=== PATIENT | male | born 1990 | race Caucasian/White ===

== ENCOUNTER 2020-08-01 21:48 | Emergency (ER) | payer BC ==
[2020-08-01] MEDS ORDERED: Sodium Chloride 0.9% 2.5 ML Syringe FLUSH PRN (22:22)
[2020-08-01] MEDS ORDERED: Sodium Chloride 0.9% 10 ML Syringe FLUSH PRN (22:22)
[2020-08-01 23:00] LABS: CARBON DIOXIDE,CO2 24.1 mmol/L (21.0-32.0); POTASSIUM,K 3.5 mmol/L (3.5-5.1)
[2020-08-01] MEDS ORDERED: oxyCODONE 5 MG Tab PO ONE (23:00)
[2020-08-01] MEDS ORDERED: Ketorolac 30 MG/ML SDV IVPUSH ONE (23:00)
[2020-08-01] MEDS ORDERED: Acetaminophen 500 MG Tab PO ONE (23:00)
[2020-08-01] MEDS ORDERED: Lactated Ringers 1,000 ML IV ONE (23:01)
[2020-08-01] MEDS ORDERED: Iopamidol 755 Mg/ML 100 ML Bottle IVPUSH ONE (23:57)
--- NOTE | 2020-08-02 00:26 | CT ---
INDICATION: Left flank pain TECHNIQUE: CT abdomen and pelvis acquired with IV contrast. 100 mL of Isovue 370 administered. COMPARISON: None available FINDINGS: Lower chest: Unremarkable. Liver: Hepatomegaly measuring 24.7 cm craniocaudally. Hepatic steatosis. Spleen: Splenomegaly measuring 15 cm anteroposteriorly. Pancreas: Unremarkable. Gallbladder and bile ducts: Unremarkable. Adrenal glands: Unremarkable. Kidneys: Mild left hydroureteronephrosis and a delayed left nephrogram with a 6 mm calculus in the distal left ureter at the UVJ. No right hydronephrosis. An apparent punctate density in the mid right ureter on image 106 with small regional ureteral soft tissue density. GI tract: Unremarkable. Appendix is normal. Vascular structures: Unremarkable. Lymph nodes: Unremarkable. Miscellaneous: No significant free fluid or free air. Pelvic Organs: Mild bladder wall thickening. Unremarkable prostate. Bones: Unremarkable for age. IMPRESSION: Mild left obstructive uropathy due to a 6 mm distal ureteral calculus at the UVJ. An apparent punctate calcific density in the mid right ureter without right obstructive uropathy. Apparent regional ureteral soft tissue density is nonspecific. Recommend follow-up urological evaluation, including urine cytology. Mild bladder wall thickening. Correlate for a superimposed UTI. Hepatomegaly and hepatic steatosis. Splenomegaly. Dictated by Sarabjit Mejia MD @ 08/02/2020 12:24:32 AM Please note that all CT scans at this facility use dose modulation, iterative reconstruction, and/or weight-based dosing when appropriate to reduce radiation dose to as low as reasonably achievable. Dictated by: Sarabjit Mejia MD @ 08/02/2020 00:24:38 (Electronically Signed)
--- NOTE | 2020-08-02 00:46 | EDM.PDOC ---
ED [facility] GENERAL MEDICAL PROBLEM - General Chief Complaint: Flank Pain Stated Complaint: POSSIBLE KIDNEY STONES Time Seen by Provider: 08/01/20 22:23 Source of Information: Reports: Patient History Limitations: Reports: No Limitations - History of Present Illness INITIAL COMMENTS - FREE TEXT/NARRATIVE: 29-year-old male with past medical history of kidney stones presenting with left flank pain. 2-day history of left flank pain radiating to the penis. Onset at rest, nothing makes it better or worse. Pain is constant, rated as 5 out of 10, described as "sharp". Also reports some dysuria and pink-tinged urine. Is concerned that he may have another kidney stone. Denies fever, chills, penile lesions or discharge, trauma, nausea, vomiting, diarrhea, hematemesis, or GI bleeding. ROS: A 10-point review of systems was negative, except as noted in the HPI (or in the ROS section of this note). Past medical history: Reviewed, no additional pertinent history. Surgical history: Reviewed in system, no additional pertinent history. Social history: Reviewed in system, no additional pertinent history. Family history: Reviewed in system, no additional pertinent history. PHYSICAL EXAM Vital signs reviewed. Nursing notes reviewed. Constitutional: Awake, alert, non-distressed. Head: Normocephalic, atraumatic. Eyes: EOMI, conjunctiva normal, no discharge, no scleral icterus. Ears, Nose, Throat: External ears and nose normal, moist oral mucosa. Cardiovascular: 2+ radial pulse, capillary refill less than 2 seconds. Pulmonary: normal work of breathing, no accessory muscle use. Abdomen/GI: Soft, nontender, nondistended, no guarding or rigidity, no masses. No CVA tenderness. Musculoskeletal: No deformities. Integumentary: Appropriate color for ethnicity, warm, dry, no pallor or jaundice, no rash. Neurologic: Alert, answering questions appropriately, normal speech, no facial droop, moving all extremities well. Psychiatric: Appropriate mood and affect, normal thought process. L flank Pain Score (Numeric/FACES): 7 - Related Data Allergies Allergy/AdvReac Type Severity Reaction Status Date / Time No Known Allergies Allergy Verified 08/01/20 22:21 Home Meds: Home Meds Tamsulosin HCl [Flomax] 0.4 mg PO DAILY 14 Days #14 cap.er.24h 08/02/20 [Rx] Past Medical History HEENT History: Reports: Impaired Vision Other HEENT History: wears glasses Genitourinary History: Reports: Renal Calculus - Past Surgical History HEENT Surgical History: Reports: Other (See Below) Male Surgical History: Reports: Lithotripsy (ESWL) Social & Family History - Family History Family Medical History: Noncontributory - Tobacco Use Smoking Status *Q: Never Smoker Second Hand Smoke Exposure: No - Caffeine Use Caffeine Use: Reports: None - Alcohol Use Days Per Week of Alcohol Use: 7 Number of Drinks Per Day: 7 Total Drinks Per Week: 49 - Recreational Drug Use Recreational Drug Use: No ED ROS GENERAL - Review of Systems Review Of Systems: See Below ED EXAM, RENAL/ - Physical Exam Exam: See Below Course - Vital Signs Text/Narrative:: 29-year male presenting with flank pain. Patient hemodynamically stable, afebrile, well-appearing, looks nontoxic. Differential diagnosis includes but is not limited to: Kidney stone, splenic injury, early zoster, occult trauma, intra-abdominal infection, muscle strain/sprain, UTI, pyelonephritis, and many others. IV access established and labs were sent. Given analgesic medications for pain with good relief. CBC shows normal cell lines. Normal lactate. Mild creatinine elevation at 1.5 -given IV fluids. Normal electrolytes. Negative lipase. Urinalysis shows trace ketones and large blood. CT abdomen/pelvis shows a 6 mm kidney stone at the left distal ureter at the UVJ with mild left hydroureteronephrosis. CT also demonstrated mild bladder wall thickening concerning for developing UTI. Also demonstrated apparent regional ureteral soft tissue density which is nonspecific although the radiologist did recommend follow-up with a urologist. Presentation and symptomatology seem consistent with a kidney stone. I reviewed the nonspecific regional ureteral soft tissue density with the patient and counseled him to follow-up with the urologist to have the urologist review the CT scan to determine if further work-up is needed, patient voiced understanding. Given concern for radiographic evidence of possible developing UTI, we will prescribe oral antibiotics. Plan: Patient is stable to discharge home with outpatient urology clinic follow- up. Prescriptions written for Percocet, ibuprofen, Flomax, and Keflex. PDMP queried - no entries noted. Patient will be referred to the urology clinic and given a strainer. Strict emergency department return precautions were provided, patient indicated understanding. All questions were answered prior to departure. Discharged in good condition. Last Recorded V/S: Last Vital Signs Temp 36.7 C 08/02/20 00:59 Pulse 92 08/02/20 00:59 Resp 18 08/02/20 00:59 BP 171/91 H 08/02/20 00:59 Pulse Ox 95 08/02/20 00:59 - Orders/Labs/Meds Orders: Active Orders 24 hr Category Date Time Status Saline Lock Insert [OM.PC] Stat Oth 08/01/20 22:22 Ordered Labs: Laboratory Tests 08/01/20 08/01/20 08/01/20 Range/Units 22:23 22:30 22:30 WBC 10.49 (4.0-11.0) K/uL RBC 5.31 (4.50-5.90) M/uL Hgb 17.2 H (13.0-17.0) g/dL Hct 50.1 H (38.0-50.0) % MCV 94.4 (80.0-98.0) fL MCH 32.4 H (27.0-32.0) pg MCHC 34.3 (31.0-37.0) g/dL RDW Std Deviation 44.5 (28.0-62.0) fl RDW Coeff of Gee 13 (11.0-15.0) % Plt Count 239 (150-400) K/uL MPV 10.90 (7.40-12.00) fL Neut % (Auto) 70.2 (48.0-80.0) % Lymph % (Auto) 19.8 (16.0-40.0) % [place] % (Auto) 7.6 (0.0-15.0) % Eos % (Auto) 1.9 (0.0-7.0) % Baso % (Auto) 0.5 (0.0-1.5) % Neut # (Auto) 7.4 H (1.4-5.7) K/uL Lymph # (Auto) 2.1 (0.6-2.4) K/uL [place]pson # (Auto) 0.8 (0.0-0.8) K/uL Eos # (Auto) 0.2 (0.0-0.7) K/uL Baso # (Auto) 0.1 (0.0-0.1) K/uL Nucleated RBC % 0.0 /100WBC Nucleated RBCs # 0 K/uL Lactate 1.3 (0.20-2.00) mmol/L Sodium (136-148) mmol/L Potassium (3.5-5.1) mmol/L Chloride (98-107) mmol/L Carbon Dioxide (21.0-32.0) mmol/L BUN (7.0-18.0) mg/dL Creatinine (0.8-1.3) mg/dL Est Cr Clr Drug Dosing mL/min Estimated GFR (MDRD) ml/min Glucose (74-106) mg/dL Calcium (8.5-10.1) mg/dL Total Bilirubin (0.2-1.0) mg/dL AST (15-37) IU/L ALT (14-63) IU/L Alkaline Phosphatase (46-116) U/L Total Protein (6.4-8.2) g/dL Albumin (3.4-5.0) g/dL Globulin (2.6-4.0) g/dL Albumin/Globulin Ratio (0.9-1.6) Lipase (73-393) U/L Urine Color YELLOW Urine Appearance SLT CLOUDY Urine pH 6.0 (5.0-8.0) Ur Specific [place] >= 1.030 (1.001-1.035) Urine Protein NEGATIVE (NEGATIVE) mg/dL Urine Glucose (UA) NEGATIVE (NEGATIVE) mg/dL Urine Ketones TRACE H (NEGATIVE) mg/dL Urine Occult Blood LARGE H (NEGATIVE) Urine Nitrite NEGATIVE (NEGATIVE) Urine Bilirubin NEGATIVE (NEGATIVE) Urine Urobilinogen 0.2 (<2.0) EU/dL Ur Leukocyte Esterase NEGATIVE (NEGATIVE) Urine RBC 30-40 (0-2/HPF) Urine WBC 0-3 (0-5/HPF) Ur Epithelial Cells RARE (NONE-FEW) Urine Bacteria FEW (NEGATIVE) 08/01/20 Range/Units 22:30 WBC (4.0-11.0) K/uL RBC (4.50-5.90) M/uL Hgb (13.0-17.0) g/dL Hct (38.0-50.0) % MCV (80.0-98.0) fL MCH (27.0-32.0) pg MCHC (31.0-37.0) g/dL RDW Std Deviation (28.0-62.0) fl RDW Coeff of Gee (11.0-15.0) % Plt Count (150-400) K/uL MPV (7.40-12.00) fL Neut % (Auto) (48.0-80.0) % Lymph % (Auto) (16.0-40.0) % Upson % (Auto) (0.0-15.0) % Eos % (Auto) (0.0-7.0) % Baso % (Auto) (0.0-1.5) % Neut # (Auto) (1.4-5.7) K/uL Lymph # (Auto) (0.6-2.4) K/uL Upson # (Auto) (0.0-0.8) K/uL Eos # (Auto) (0.0-0.7) K/uL Baso # (Auto) (0.0-0.1) K/uL Nucleated RBC % /100WBC Nucleated RBCs # K/uL Lactate (0.20-2.00) mmol/L Sodium 139 (136-148) mmol/L Potassium 3.5 (3.5-5.1) mmol/L Chloride 103 (98-107) mmol/L Carbon Dioxide 24.1 (21.0-32.0) mmol/L BUN 18 (7.0-18.0) mg/dL Creatinine 1.5 H (0.8-1.3) mg/dL Est Cr Clr Drug Dosing 90.82 mL/min Estimated GFR (MDRD) 56.1 ml/min Glucose 114 H (74-106) mg/dL Calcium 9.4 (8.5-10.1) mg/dL Total Bilirubin 0.5 (0.2-1.0) mg/dL AST 43 H (15-37) IU/L ALT 110 H (14-63) IU/L Alkaline Phosphatase 109 (46-116) U/L Total Protein 7.8 (6.4-8.2) g/dL Albumin 4.3 (3.4-5.0) g/dL Globulin 3.5 (2.6-4.0) g/dL Albumin/Globulin Ratio 1.2 (0.9-1.6) Lipase 118 (73-393) U/L Urine Color Urine Appearance Urine pH (5.0-8.0) Ur Specific [place] (1.001-1.035) Urine Protein (NEGATIVE) mg/dL Urine Glucose (UA) (NEGATIVE) mg/dL Urine Ketones (NEGATIVE) mg/dL Urine Occult Blood (NEGATIVE) Urine Nitrite (NEGATIVE) Urine Bilirubin (NEGATIVE) Urine Urobilinogen (<2.0) EU/dL Ur Leukocyte Esterase (NEGATIVE) Urine RBC (0-2/HPF) Urine WBC (0-5/HPF) Ur Epithelial Cells (NONE-FEW) Urine Bacteria (NEGATIVE) Meds: Medications Discontinued Medications Generic Name Dose Route Start Last Admin Trade Name Timothyq PRN Reason Stop Dose Admin Acetaminophen 1,000 mg 08/01/20 23:00 08/01/20 23:12 Tylenol Extra Strength PO 08/01/20 23:01 1,000 mg ONETIME ONE Administration Lactated Ringer's 1,000 mls @ 999 mls/hr 08/01/20 23:01 08/01/20 23:13 Ringers, Lactated IV 08/02/20 00:01 999 mls/hr .BOLUS ONE Administration Iopamidol 100 ml 08/01/20 23:57 08/01/20 23:58 Isovue-370 (76%) IVPUSH 08/01/20 23:58 100 ml ONETIME ONE Administration Ketorolac Tromethamine 15 mg 08/01/20 23:00 08/01/20 23:13 Toradol IVPUSH 08/01/20 23:01 15 mg ONETIME ONE Administration Oxycodone HCl 10 mg 08/01/20 23:00 08/01/20 23:12 Oxycodone PO 08/01/20 23:01 10 mg ONETIME ONE Administration Sodium Chloride 2.5 ml 08/01/20 22:22 08/01/20 22:38 Saline Flush FLUSH 2.5 ml ASDIRECTED PRN Administration Keep Vein Open Sodium Chloride 10 ml 08/01/20 22:22 08/01/20 22:38 Saline Flush FLUSH 10 ml ASDIRECTED PRN Administration Keep Vein Open Departure - Departure Time of Disposition: 00:40 Disposition: Home, Self-Care 01 Condition: Good Clinical Impression: Kidney stone on left side, Elevated creatine kinase UTI (urinary tract infection) Qualifiers: Urinary tract infection type: acute cystitis Hematuria presence: with hematuria Qualified Code(s): N30.01 - Acute cystitis with hematuria - Discharge Information *PRESCRIPTION DRUG MONITORING PROGRAM REVIEWED*: Yes *COPY OF PRESCRIPTION DRUG MONITORING REPORT IN PATIENT RAYMUNDO: Not Applicable Prescriptions: Tamsulosin HCl [Flomax] 0.4 mg PO DAILY 14 Days #14 cap.er.24h Instructions: Renal Colic Referrals: [facility] - Urology [Provider Group] - 1 Week Forms: ED Department Discharge Additional Instructions: You were seen in the emergency department for flank pain. Your CT scan demonstrated a 6 mm kidney stone. This will likely pass. We will prescribe some pain medication along with Flomax, a medication that urologists recommend for kidney stones. The CT scan was also concerning for a possible early developing UTI so we will prescribe some antibiotics. I would like for you to follow-up with the urologist in the next 5 to 7 days for reevaluation. Warning signs to come back to the ER include severe pain, repeated vomiting, fever, chills, or any other new or concerning symptoms. Please return the emergency department immediately if your symptoms worsen or if you feel worse. Thank you for choosing the [facility] emergency department in [place] for your medical needs today. It was a pleasure caring for you. The following information is given to patients seen in the emergency department who are being discharged. This information is to outline your options for follow-up care. We provide all patients seen in our emergency department with a follow-up referral. The need for follow-up, as well as the timing and circumstances, are variable depending upon the specifics of your emergency department visit. If you don't have a primary care physician on staff, we will provide you with a referral. We always advise you to contact your personal physician following an emergency department visit to inform them of the circumstance of the visit and for follow-up with them and/or the need for any referrals to a consulting specialist. The emergency department will also refer you to a specialist when appropriate. This referral assures that you have the opportunity for follow-up care with a specialist. All of these measure are taken in an effort to provide you with optimal care, which includes your follow-up. Under all circumstances we always encourage you to contact your private physician who remains a resource for coordinating your care. When calling for follow-up care, please make the office aware that this follow-up is from your recent emergency room visit. If for any reason you are refused follow-up, please contact the [facility] Emergency Department at and asked to speak to the emergency department charge nurse. If you do not have a primary care physician that is caring for you, you can contact these clinics below to set up an appointment to establish care: [facility] - Primary Care [address] [place], [place] [id number] [place] [address] Sepsis Event Note (ED) - Evaluation Sepsis Screening Result: No Definite Risk - Focused Exam Vital Signs: Vital Signs Temp Pulse Resp BP Pulse Ox 08/02/20 00:59 36.7 C 92 18 171/91 H 95 08/01/20 22:13 36.2 C 102 H 18 171/96 H 97 - My Orders Last 24 Hours: My Active Orders 08/01/20 22:22 Saline Lock Insert [OM.PC] Stat - Assessment/Plan Last 24 Hours: My Active Orders 08/01/20 22:22 Saline Lock Insert [OM.PC] Stat
== END 2020-08-02 00:59 | disposition home or self-care (01) ==
LOC: MW.ED 21:48
DX: N30.01 Acute cystitis with hematuria (principal); N13.2 Hydronephrosis with renal and ureteral calculous obstruction; R74.8 Abnormal levels of other serum enzymes
CPT/HCPCS: 36415; 74177; 80053; 81001; 83605; 83690; 85025; 96361; 96374; 99284; A9270; J1885; J7120; Q9967; 99283